=== PATIENT | female | born 1995 | race Caucasian/White ===

== ENCOUNTER 2016-05-03 09:26 | Emergency (ER) | payer MEDICAID ==
[~2016-05-03] VITALS: Ht 157.5 cm; Wt 54.0 kg
[2016-05-03 09:30] VITALS: Ht 157.5 cm; Wt 54.0 kg
[2016-05-03 11:04] LABS: URINE BLOOD (Dip) POC 2+ (NEGATIVE)
[2016-05-03] MEDS ORDERED: CIPR500T4 PO (11:25)
[2016-05-03] MEDS ORDERED: CEFTRIAXONE 1 GM INJ IM ONE (11:30)
[2016-05-03] MEDS ORDERED: LIDOCAINE 1% (MDV) 20 ML INJ SC ONE (11:30)
[2016-05-03 11:45] VITALS: BP 121/76; PULSE 110; RESP 18; TEMP 100.5
[2016-05-03] MEDS ORDERED: ACETAMINOPHEN 500 MG TAB PO STA (11:52)
--- NOTE | 2016-05-04 08:09 | ERD ---
DATE OF SERVICE: 05/03/2016 HISTORY OF PRESENT ILLNESS: The patient is a 21-year-old female complaining of pelvic pain with nathalie k pain for the last 3 days. The patient states that she has no pain with urination, no changes in b owel movements, no abdominal pain, no vaginal discharge, no history of STDs in the past. PAST MEDICAL HISTORY: No medical problems. ALLERGIES: No allergies to medications. PAST SURGICAL HISTORY: Denies. SOCIAL HISTORY: Smokes a pack a day. Denies drug use. REVIEW OF SYSTEMS: A 12-point review of systems was done. Refer to HPI for positives; all other sy stems negative. PHYSICAL EXAMINATION VITAL SIGNS: Temperature is 98.8, pulse is 122, blood pressure is 136/85, respiratory rate 20, O2 s aturation 100% on room air. Pain intensity 9/10. GENERAL: The patient is well appearing, well nourished, in no acute distress. HEART: Regular rate and rhythm. No murmurs, clicks, rubs or gallops. No S3 or S4. CHEST: Clear to auscultation bilaterally. There are no rales, wheezes or rhonchi. HEENT: Atraumatic. Conjunctivae are pink. Pupils equal, round, and reactive to light. There is no s cleral icterus. Tympanic membranes clear bilaterally. Oropharynx clear. No nystagmus or photophobia . BACK: No midline or flank tenderness. No CVA tenderness. ABDOMEN: Normal active bowel sounds per auscultation. No distention or organomegaly. The patient has no tenderness to palpation over lateral right or left lower quadrants. Mild suprapubic pain. EMERGENCY ROOM COURSE: The patient had a urine dip checked in the ER. Patient's urine showed posit bret nitrites with 2+ leuks, 2+ blood and 1+ ketones. The patient's urine was sent for culture. The patient was given a gram of Rocephin in the ER. The patient's urine was negative. DIAGNOSIS: Urinary tract infection. MEDICAL DECISION-MAKING: The patient's vital signs are stable. She is afebrile; does not have CVA tenderness. I have a suspicion for pyelo. The patient will be treated with a prescription dose for duration to treat pyelo, given that she does complain of back pain; however, there is no reproducib le pain on exam. I have a low suspicion for other pelvic emergencies, as the patient's exam was not concerning. I have low suspicion for acute abdomen. The patient's abdominal exam was within dagoberto l limits. DISCHARGE: The patient is discharged stable. The patient is given a prescription for Cipro and ava d to follow up with primary care within 1 to 2 days for reevaluation. The patient was told, if symp toms progress or worsen, to return to ER. All of her questions answered at time of discharge. Disc harge summary given at the time of departure. Patient understood and will comply with plan. Dictated By: RAMIREZ HARRIS for SUREKHA ARCINIEGA/LYNDA Conf#: [id number] DID#: [id number]
== END 2016-05-03 12:00 | disposition home or self-care (01) ==
LOC: FTE 09:26
DX: N39.0 Urinary tract infection, site not specified (principal); F17.210 Nicotine dependence, cigarettes, uncomplicated
CPT/HCPCS: 81003; 87086; 96372; J0696; Z7502; Z7610